=== PATIENT | female | born 1985 | race Caucasian/White ===

== ENCOUNTER 2017-08-28 09:01 | Emergency (ER) | payer OTHER, SELFPAY ==
[2017-08-28 09:26] VITALS: BP 102/68; PULSE 108; RESP 20; TEMP 37.3; O2SAT 99; BMI 17.7
--- NOTE | 2017-08-28 09:32 | XR_ITS ---
XR chest 2V HISTORY: Cough and congestion ITS.REASON: flu A, cough ORDERING PHYSICIAN: Jason Schmid PATIENT AGE: 31 years COMPARISON: None available FINDINGS: The cardiovascular structures are unremarkable. There is hyperattenuation more prominent on the left with areas of decreased attenuation suspicious for bullous or emphysematous changes. There are some mild scarring in the left upper lobe. On the right there are 2 small areas of increased density in the right midlung measuring 12 and 6 mm. Is could be due to patchy areas of pneumonia or developing nodules. Follow-up recommended. If these persist then, chest CT may be needed for further evaluation. No acute bony anomalies. There is mild pectus deformity. IMPRESSION: 1. 2 nodular opacities in the right midlung which could be due to areas of patchy infiltrate or developing nodules. 2. Hyperattenuation on the left with suspected emphysematous/bullous changes
--- NOTE | 2017-08-28 09:46 | HMH.EDUTC ---
[facility] [place] Disposition Clinical Impression: Influenza A, Abnormal chest xray Disposition: Home, Self-Care Condition on Discharge: Good Instructions: DI for Influenza -- Adult, DI for Pneumonia -- Adult Additional Instructions: * Too late to start tamiflu. Most effective when started within 48 hours of symptoms onset. * Chest xray concerning for possible pneumonia. Not conclusive. Start antibiotic and be sure to take as directed and complete it unless directed otherwise. Follow up with primary care extremely important so that chest xray can be repeated to ensure it resolves if was pneumonia or if not, for additional workup. * Mucinex during the day for your cough and cough suppressant only at night. Be sure to drink lots of water. Insurance may not cover a prescription of mucinex. Might be cheaper to get 400mg tablets and take 2 tablets morning, midday and evening all with lots of water. * Lots of rest * Increase fluids, water, gatorade, powerade, pedialyte if /toddler/child * Monitor Temp. Should start to improve over the next 24-48 hours. Tylenol every 4 hours as needed no more then 5 times a day or 4000mg in 24 hours and/or ibuprofen every 6 hours as needed no more then 3200mg in 24 hours (as long as your primary care doctor has told you that it is ok to take both) for fever/aches/pain. ER if fever no less than 101 despite tylenol and Ibuprofen * You (or your child) are contagious until no fever, aches, chills x 24 hours without medication for symptoms. * You need to follow up with primary care or return to [facility] for ANY new or worsening symptoms, no noticeable improvement over the next 48-72 hours AND in 7-10 days for follow up on abnormal chest xray so that it can be repeated. I know you don't have primary care and use your OBGYN for routine health physicals so we have provided you with a list of providers accepting patients. I would encourage you find a new primary care provider and make an appt BIA as it can take weeks to get a new patient appointment. In the meantime, follow up in the clinic or ER for new, worsening or persistent symptoms Prescriptions: Azithromycin [Z-Thomas 250mg Tab] 250 mg PO UD DOSE PK #6 tab Forms: Work/School Release Time of Disposition: 10:48 Medical Decision Making Vital Signs: 08/28/17 09:26 Temperature 99.1 F Temperature Source Temporal Artery Scan Pulse Rate [Left Brachial] 108 H Respiratory Rate 20 Blood Pressure [Left Arm] 102/68 Blood Pressure Mean [Left Arm] 79 Blood Pressure Source [Left Arm] Automatic Cuff Blood Pressure Position [Left Arm] Sitting 02 Sat by Pulse Oximetry 99 Oxygen Delivery Method Room Air - Lab Data Lab results reviewed: Yes: I reviewed the patient's lab results. Lab Results 08/28/17 09:31: Influenza Type A Ag Positive A, Influenza Type B Ag Negative - Radiology Data #1 Image(s): Chest Image Reviewed: Yes I have reviewed radiologist's interpretation, Yes I reviewed the patient's radiology image w/the ED provider [facility] w/ LUIS ALFREDO Martino MD. Questionable RML findings. No comparison. Suggest discussing with radiologist @1000: Silviano in Radiology notified to have radiologist review CXR. @1035: Two nodular opacities in right midlung which could be due to areas of patchy infiltrate or developing nodules. - Gerardo Inquiry Pt receiving controlled substance: No - Reevaluation(s) Time: 10:15 Reevaluation #1: Pt resting reclined comfortably on exam table. updated and aware we are waiting for radiologist to review CXR. No needs at this time. Educated about Influenza and rvwd POC involving influenza. [facility] [place] HPI - General Stated complaint: cough fever achey Time Seen by Provider: 08/28/17 09:25 Mode of Arrival: Ambulatory Source of Information: Patient Limitations: No Limitations Description of Symptoms (Recalled from Triage Doc. by RN): C/O COUGH, FEVER, BODYACHES HEENT Symptoms (Recalled from RN notes): No Resp Symptoms (Recalled from RN notes): Yes (CO
--- NOTE | 2017-08-28 09:49 | ED_ITS ---
[facility] [place] Disposition Clinical Impression: Influenza A, Abnormal chest xray Disposition: Home, Self-Care Condition on Discharge: Good Instructions: DI for Influenza -- Adult, DI for Pneumonia -- Adult Additional Instructions: * Too late to start tamiflu. Most effective when started within 48 hours of symptoms onset. * Chest xray concerning for possible pneumonia. Not conclusive. Start antibiotic and be sure to take as directed and complete it unless directed otherwise. Follow up with primary care extremely important so that chest xray can be repeated to ensure it resolves if was pneumonia or if not, for additional workup. * Mucinex during the day for your cough and cough suppressant only at night. Be sure to drink lots of water. Insurance may not cover a prescription of mucinex. Might be cheaper to get 400mg tablets and take 2 tablets morning, midday and evening all with lots of water. * Lots of rest * Increase fluids, water, gatorade, powerade, pedialyte if /toddler/child * Monitor Temp. Should start to improve over the next 24-48 hours. Tylenol every 4 hours as needed no more then 5 times a day or 4000mg in 24 hours and/or ibuprofen every 6 hours as needed no more then 3200mg in 24 hours (as long as your primary care doctor has told you that it is ok to take both) for fever/ aches/pain. ER if fever no less than 101 despite tylenol and Ibuprofen * You (or your child) are contagious until no fever, aches, chills x 24 hours without medication for symptoms. * You need to follow up with primary care or return to [facility] for ANY new or worsening symptoms, no noticeable improvement over the next 48-72 hours AND in 7 -10 days for follow up on abnormal chest xray so that it can be repeated. I know you don't have primary care and use your OBGYN for routine health physicals so we have provided you with a list of providers accepting patients. I would encourage you find a new primary care provider and make an appt BIA as it can take weeks to get a new patient appointment. In the meantime, follow up in the clinic or ER for new, worsening or persistent symptoms Prescriptions: Azithromycin [Z-Thomas 250mg Tab] 250 mg PO UD DOSE PK #6 tab Forms: Work/School Release Time of Disposition: 10:48 Medical Decision Making Vital Signs: 08/28/17 09:26 Temperature 99.1 F Temperature Source Temporal Artery Scan Pulse Rate [Left Brachial] 108 H Respiratory Rate 20 Blood Pressure [Left Arm] 102/68 Blood Pressure Mean [Left Arm] 79 Blood Pressure Source [Left Arm] Automatic Cuff Blood Pressure Position [Left Arm] Sitting 02 Sat by Pulse Oximetry 99 Oxygen Delivery Method Room Air - Lab Data Lab results reviewed: Yes: I reviewed the patient's lab results. Lab Results 08/28/17 09:31: Influenza Type A Ag Positive A, Influenza Type B Ag Negative - Radiology Data #1 Image(s): Chest Image Reviewed: Yes I have reviewed radiologist's interpretation, Yes I reviewed the patient's radiology image w/the ED provider Joe w/ LUIS ALFREDO Martino MD. Questionable RML findings. No comparison. Suggest discussing with radiologist @1000: Silviano in Radiology notified to have radiologist review CXR. @1035: Two nodular opacities in right midlung which could be due to areas of patchy infiltrate or developing nodules. - Gerardo Inquiry Pt receiving controlled substance: No - Reevaluation(s) Time: 10:15 Reevaluation #1: Pt resting reclined comfortably on exam table. updated and aware we are waiting for radiologist to review CXR. No needs at this t
[2017-08-28 10:17] LABS: UTC Influenza A Antigen Positive (Negative); UTC Influenza B Antigen Negative (Negative)
[2017-08-28 10:50] VITALS: BP 102/68; PULSE 108; RESP 20; TEMP 37.3; O2SAT 99
== END 2017-08-28 10:58 | disposition home or self-care (01) ==
PROVIDERS: Emergency Provider Nurse Practitioner Family
DX: J10.1 Influenza due to other identified influenza virus with other respiratory manifestations (principal)
CPT/HCPCS: 71046; 87804; 99202

== ENCOUNTER 2020-09-01 18:23 | Outpatient (CLI) | payer BC, SELFPAY | END 2020-09-01 19:12 | disposition home or self-care (01) | LOC: UTC.OUT 18:28 | PROVIDERS: PCP Family Medicine; Visit Provider Nurse Practitioner | DX: Z02.9 Encounter for administrative examinations, unspecified ==

== ENCOUNTER 2021-02-07 13:55 | Emergency (ER) | payer BC, SELFPAY ==
[2021-02-07 13:56] VITALS: BP 127/79; PULSE 95; RESP 18; TEMP 36.7; O2SAT 97; BMI 19.2
[2021-02-07 14:25] VITALS: BP 127/79; PULSE 90; O2SAT 100
[2021-02-07 14:36] LABS: Microscopic, Urine URINE MICROSCOPIC (MICROSCOPIC)
[2021-02-07 14:38] LABS: Appearance,Urine CLEAR (Clear); Bilirubin,Urine Negative (Negative); Blood, Urine 3+ (Negative); Color,Urine YELLOW (Yellow); Glucose,Urine (UA) Negative (Negative); Ketones,Urine Negative (Negative); Leukocyte Esterase,Urine TRACE (Negative); Nitrate,Urine Negative (Negative); Protein,Urine Negative (Negative); Specific Gravity, Urine <= 1.005 (1.005-1.030); Urobilinogen,Urine 0.2 EU/dl (0.2)
[2021-02-07 14:51] LABS: WBC,Urine Occasional #/hpf (0-3)
--- NOTE | 2021-02-07 15:02 | US_ITS ---
PROCEDURE: US TRANSVAGINAL CLINICAL INDICATION: first trimester bleeding COMPARISON: CT ABDPELW/WO CT ABD PELVIS W/WO CONTRAST from 03/23/2014 FINDINGS: An intrauterine gestational sac is present with a pole and yolk sac. [place]-rump length is 0.27 cm correlating to gestational age of 5 weeks and 6 days. Questionable heart flicker noted but no definite heart tones. There is a heterogeneous area of echogenicity anterior to the gestational sac measuring 4 x 2 x 3.5 cm and may represent a prominent area of subchorionic hemorrhage. Right ovary is 3 x 3 x 3 x 1.2 cm and contains a 1.8 cm cyst. Left ovary has an unremarkable appearance. No cul-de-sac fluid is evident. IMPRESSION: 1. Intrauterine gestational sac with a crown-rump length of 5 weeks 6 days with questionable heart flicker. Cannot confirm viability at this time. 2. Heterogeneous echogenicity anterior to the gestational sac consistent with subchorionic bleed. Recommend follow-up to confirm resolution and to confirm viability. Dictated by: Pedro Berg MD 02/07/2021 15:59 Pedro Berg MD in OV 02/07/2021 15:59
[2021-02-07 15:10] LABS: HCG Qualitative, Serum Positive (Negative)
--- NOTE | 2021-02-07 15:21 | PC.NURSE ---
Pt with US
--- NOTE | 2021-02-07 15:23 | HMH.EDGENADL ---
ED Disposition Clinical Impression: Vaginal bleeding UTI (urinary tract infection) Qualifiers: Urinary tract infection type: acute cystitis Hematuria presence: with hematuria Qualified Code(s): N30.01 - Acute cystitis with hematuria Subchorionic bleed Qualifiers: Fetus number: single or unspecified fetus Trimester: first trimester Qualified Code(s): O41.8X10 - Other specified disorders of amniotic fluid and membranes, first trimester, not applicable or unspecified; O46.8X1 - Other antepartum hemorrhage, first trimester Disposition: Home, Self-Care Condition on Discharge: Good Instructions: DI for Vaginal Bleeding Additional Instructions: Please take antibiotic as prescribed Please follow-up with your OB for further evaluation. Ultrasound today demonstrated your gestational age 5 weeks and 6 days Prescriptions: Nitrofurantoin Monohyd/M-Cryst [Macrobid 100 mg Capsule] 100 mg PO BID 5 Days #10 cap Prescription Printed Referrals: Provider,Referral, [Primary Care Provider] - - Critical Care Critical Care Time: No Attestation: On 02/07/21, the high probability of a clinically significant, sudden or life threatening deterioration of the following system(s) required my full and direct attention, intervention and personal management. The time I documented below is in addition to time spent performing reported procedures but includes the following listed in this critical care notation. Medical Decision Making - Medical Records Medical records reviewed: Yes: I reviewed the patient's medical records. - Gerardo Inquiry Pt receiving controlled substance: No Vital Signs: 02/07/21 13:56 02/07/21 14:25 02/07/21 16:00 Temperature 98.1 F Temperature Source Oral Pulse Rate 90 86 Pulse Rate [Right] 95 H Respiratory Rate 18 Blood Pressure 127/79 112/81 Blood Pressure [Right Arm] 127/79 Blood Pressure Mean [Right Arm] 95 02 Sat by Pulse Oximetry 97 100 100 Oxygen Delivery Method Room Air 02/07/21 16:30 Temperature Temperature Source Pulse Rate 74 Pulse Rate [Right] Respiratory Rate Blood Pressure 104/77 L Blood Pressure [Right Arm] Blood Pressure Mean [Right Arm] 02 Sat by Pulse Oximetry 98 Oxygen Delivery Method - Lab Data Lab Results 02/07/21 14:20: Urine Color Yellow, Urine Appearance Clear, Urine pH 6.0, Ur Specific [place] <= 1.005, Urine Protein Negative, Urine Glucose (UA) Negative, Urine Ketones Negative, Urine Blood 3+, Urine Nitrate Negative, Urine Bilirubin Negative, Urine Urobilinogen 0.2, Ur Leukocyte Esterase Trace, Urine RBC 5-10, Urine WBC Occasional, Ur Squamous Epith Cells 3-5, Urine Bacteria None 02/07/21 14:28: HCG, Quant [id number] H 02/07/21 14:28: Serum HCG, Qual Positive 02/07/21 15:58: Blood Type A Negative, Antibody Screen Negative Orders (Tests/Meds): ORDERS Category Date Time Status US transvaginal Stat Exams 02/07/21 15:02 Taken Medical Decision Narrative: Upon presentation, patient is hemodynamically stable and nontoxic-appearing. Patient presents with vaginal bleeding the setting of . Differential diagnosis includes but is not limited to first trimester bleeding, miscarriage, hematuria. A quantitative beta-hCG, transvaginal ultrasound and UA were obtained. Patient's Beta hCG was positive to over [id number], consistent with 1-10 weeks gestation. Patient's transvaginal ultrasound demonstrates an intrauterine with gestational age of 5 weeks and 6 days. This coincides with patient's beta-hCG. Additionally patient's UA demonstrates some bacteria and leukocyte esterase. She will be treated for UTI. I discussed results with the patient and recommended follow-up with her OB. Patient states she has an appointment on February 21, 2 weeks from today. General Adult HPI - General Chief complaint: Vaginal Bleeding Stated complaint: 6 wks, possible miscarriage Time Seen by Provider: 02/07/21 14:10 Mode of Arrival: Family Vehicle So
[2021-02-07 15:26] LABS: HCG,Quantitative 14466 mIU/ml (0-5.42)
[2021-02-07 16:00] VITALS: BP 112/81; PULSE 86; O2SAT 100
[2021-02-07 16:30] VITALS: BP 104/77; PULSE 74; O2SAT 98
[2021-02-07 18:00] VITALS: BP 122/65; PULSE 76; RESP 15; TEMP 36.7; O2SAT 97
== END 2021-02-07 18:04 | disposition home or self-care (01) ==
PROVIDERS: Emergency Provider Emergency Medicine
DX: O41.8X10 Other specified disorders of amniotic fluid and membranes, first trimester, not applicable or unspecified (principal); O46.8X1 Other antepartum hemorrhage, first trimester; N30.01 Acute cystitis with hematuria
CPT/HCPCS: 76830; 81001; 84702; 84703; 86850; 99282

== ENCOUNTER → 2023-05-22 15:21 | Outpatient (POV) | payer BC, SELFPAY | PROVIDERS: Visit Provider Dermatology | DX: Z00.00 Encounter for general adult medical examination without abnormal findings (principal) ==

== ENCOUNTER 2024-01-16 08:01 | Outpatient (CLI) | payer BC, SELFPAY ==
--- NOTE | 2024-01-16 08:04 | MM_ITS ---
PROCEDURE INFORMATION: Exam: Bilateral Screening 3D Mammography Exam date and time: 01/16/2024 7:52 AM Age: 38 years old Clinical indication: Screening examination TECHNIQUE: Imaging protocol: Bilateral Screening tomosynthesis and 2D mammography including computer-aided detection (CAD) when performed. COMPARISON: No relevant prior studies available. FINDINGS: MAMMOGRAPHY: Breast composition: The breasts are extremely dense, which lowers the sensitivity of mammography. Mass: None. Architectural distortion: None. Calcifications: No suspicious calcifications. Asymmetric density: None. Skin thickening: None. Axillary adenopathy: None. IMPRESSION: No mammographic evidence of malignancy. Annual screening is recommended unless otherwise clinically indicated. ASSESSMENT: BI-RADS Category 1: Negative
== END 2024-01-16 23:59 | disposition home or self-care (01) ==
LOC: RAD 08:02
PROVIDERS: PCP Nurse Practitioner Family; Visit Provider Nurse Practitioner Family
DX: Z12.31 Encounter for screening mammogram for malignant neoplasm of breast (principal)
CPT/HCPCS: 77063; 77067

== ENCOUNTER 2024-02-09 14:31 | Emergency (ER) | payer BC, SELFPAY ==
--- OUTSIDE RECORDS SUMMARY | 2024-02-09 14:34 | XMS_ITS ---
Author Organization [facility] Address [address] [place] [address] Care Team Providers Care Architectural Superintendent Name Role Phone Chandrika Darling Primary Care Provider [phone] Vince Bhat Unavailable [phone] Vince Bhat Unavailable Unavailable Deepa Bird Unavailable [phone] RESULTS Component Value Reference Range Notes Mammogram : Bilateral Reviewed date:01/24/2024 02:01:56 PM Interpretation: Performing Lab: Notes/Report: REASON FOR VISIT mammogram order Encounters Encounter Location Date Provider Diagnosis [facility] [address] [place] [address] 01/08/2024 Deepa Bird Breast cancer screening by mammogram Z12.31 ASSESSMENTS Encounter Date Diagnosis Assessment Notes Treatment Notes Treatment Clinical Notes 01/08/2024 Breast cancer screening by mammogram (ICD-10 - Z12.31) PLAN OF TREATMENT No Information Progress Notes * Chichi SUTTONB: 6 (38 yo F)Acc No.[id number]:01/08/2024 Patient:??Toyin SUTTON :1985?Age:38 Y?Sex:Fe male Address:[place] [address] Subjective: * Chief Complaints: * ?Mammogram order * Medical History:?? * Surgical History:?? * Hospitalization/Major Diagno stic Procedure:?? * Medications:?? Objective: Assessment: * Assessment: 1.??Breast cancer screening by mammogram - Z12.?? Plan: * Treatment: * Procedure Codes:?? * true * Date:??
--- OUTSIDE RECORDS SUMMARY | 2024-02-09 14:34 | XMS_ITS ---
Author Organization [facility] Address [address] [place] [address] Care Team Providers Care Obstetrics Nurse Practitioner Name Role Phone Chandrika Darling Primary Care Provider [phone] Vince Bhat Unavailable [phone] Vince Bhat Unavailable Unavailable Deepa Bird Unavailable [phone] ALLERGIES No Known Allergies RESULTS Component Value Reference Range Notes LIPID PANEL, STANDARD (7600) Reviewed date:12/20/2023 10:36:14 AM Interpretation: Performing Lab:[facility], [employer] [facility] CenterjayleenAtlantiCare [facility] CenterIhkqWH[address] Philip Epperson Notes/Report: NON-FASTING; NON-FASTING; NON-FASTING; NON-FASTING; NON-FAST FASTING:YES FASTING: YES CHOLESTEROL, TOTAL 143 <200 mg/dL HDL CHOLESTEROL 50 > OR = 50 mg/dL TRIGLYCERIDES 77 <150 mg/dL LDL-CHOLESTEROL 77 Reference range: <100 Desirable range <100 mg/dL for primary prevention; <70 mg/dL for patients with CHD or diabetic patients with > or = 2 CHD risk factors. LDL-C is now calculated using the Zehra calculation, which is a validated novel method providing better accuracy than the Friedewald equation in the estimation of LDL-C. Nishant BEAVER et al. NEL. 2013;310(19): 3380-3196 (http://education.GroundLink.ZEB/faq/XCZ270) CHOL/HDLC RATIO 2.9 <5.0 (calc) NON HDL CHOLESTEROL 93 <130 mg/dL (calc) For patients with diabetes plus 1 major ASCVD risk factor, treating to a non-HDL-C goal of <100 mg/dL (LDL-C of <70 mg/dL) is considered a therapeutic option. COMPREHENSIVE METABOLIC PANE L (12887) Reviewed date:12/20/2023 10:36:14 AM Interpretation: Performing Lab:[facility] Hand[facility]-panpan [id number], [employer] BiosciencesRcqyFV[address] Philip Epperson Notes/Report: NON-FASTING; NON-FASTING; NON-FASTING; NON-FASTING; NON-FAST FASTING:YES FASTING: YES GLUCOSE 76 65-99 mg/dL Fasting reference interval UREA NITROGEN (BUN) 11 7-25 mg/dL CREATININE 0.86 0.50-0.97 mg/dL EGFR 89 > OR = 60 mL/min/1.73m2 BUN/CREATININE RATIO SEE NOTE: 6-22 (calc) Not Reported: BUN and Creatinine are within reference range. SODIUM 138 135-146 mmol/L POTASSIUM 4.3 3.5-5.3 mmol/L CHLORIDE 103 98-110 mmol/L CARBON DIOXIDE 27 20-32 mmol/L CALCIUM 9.3 8.6-10.2 mg/dL PROTEIN, TOTAL 6.9 6.1-8.1 g/dL ALBUMIN 4.5 3.6-5.1 g/dL GLOBULIN 2.4 1.9-3.7 g/dL (calc) ALBUMIN/GLOBULIN RATIO 1.9 1.0-2.5 (calc) BILIRUBIN, TOTAL 0.6 0.2-1.2 mg/dL ALKALINE PHOSPHATASE 47 31-125 U/L AST 14 10-30 U/L ALT 13 6-29 U/L IRON AND TOTAL IRON BINDING CAPACITY (7573) Reviewed date:12/20/2023 10:36:14 AM Interpretation: Performing Lab:[facility] MongoSluicee[address] [employer], [employer] [id number] Philip Epperson Notes/Report: NON-FASTING; NON-FASTING; NON-FASTING; NON-FASTING; NON-FAST FASTING:YES FASTING: YES IRON, TOTAL 70 40-190 mcg/dL IRON BINDING CAPACITY 381 250-450 mcg/dL (isabella c) % SATURATION 18 16-45 % (calc) CBC (INCLUDES DIFF/PLT) (639 9) Reviewed date:12/20/2023 10:36:14 AM Interpretation: Performing Lab:[facility] Handipoints-panpan [id number] [employer], [facility] CenterBrveUM[address] Philip Epperson Notes/Report: NON-FASTING; NON-FASTING; NON-FASTING; NON-FASTING; NON-FAST FASTING:YES FASTING: YES WHITE BLOOD CELL COUNT 6.3 3.8-10.8 Thousand/ uL RED BLOOD CELL COUNT 4.89 3.80-5.10 Million/uL HEMOGLOBIN 14.1 11.7-15.5 g/dL HEMATOCRIT 43.8 35.0-45.0 % MCV 89.6 80.0-100.0 fL MCH 28.8 27.0-33.0 pg MCHC 32.2 32.0-36.0 g/dL RDW 11.6 11.0-15.0 % PLATELET COUNT 221 140-400 Thousand/uL MPV 10.5 7.5-12.5 fL ABSOLUTE NEUTROPHILS 3988 3383-8820 cells/uL ABSOLUTE LYMPHOCYTES 2046 271-0474 cells/uL ABSOLUTE MONOCYTES 491 200-950 cells/uL ABSOLUTE EOSINOPHILS 139 15-500 cells/uL ABSOLUTE BASOPHILS 82 0-200 cells/uL NEUTROPHILS 63.3 LYMPHOCYTES 25.4 MONOCYTES 7.8 EOSINOPHILS 2.2 BASOPHILS 1.3 HEMOGLOBIN A1c (496) Reviewed date:12/20/2023 10:36:14 AM Interpretation: Performing Lab:[facility] Hand[facility]-panpan [id number] [employer], [facility] CenterCyymSS[address] Philip Epperson Notes/Report: NON-FASTING; NON-FASTING; NON-FASTING; NON-FASTING; NON-FAST FASTING:YES FASTING: YES HEMOGLOBIN A1c 5.3 <5.7 % of total Hgb For the purpose of screening for the presence of diabetes: <5.7% Consistent with the absence of diabetes 5.7-6.4% Consistent with increased risk for diabetes (prediabetes) > or =6.5% Consistent with diabetes This assay result is consistent with a decreased risk of diabetes. Currently, no consensus exists regarding use of hemoglobin A1c for diagnosis of diabetes in children. According to [place] Diabetes Association (ADA) guidelines, hemoglobin A1c <7.0% represents optimal control in non- diabetic patients. Different metrics may apply to specific patient populations. Standards of Medical Care in Diabetes(ADA). This test was performed on the Rob rocky c503 platform. Effective 09/12/23, a change in test platforms from the Pack Extrusion Former to the Rob rocky c503 may have shifted HbA1c results compared to historical results. Based on laboratory validation testing conducted at [facility], the Rob platform relative to the Pack platform had an average increase in HbA1c value of < or = 0.3%. This difference is within accepted variability established by the National Glycohemoglobin Standardization Program. Note that not all individuals will have had a shift in their results and direct comparisons between historical and current results for testing conducted on different platforms is not recommended. VITAMIN B12 (927) Reviewed date:12/20/2023 10:36:14 AM Interpretation: Performing Lab:[facility] Hand[facility]oint[facility]-G[facility] Biosciencese1355 [employer], Pickup ServicesLvnqZZ[address] Philip Epperson Notes/Report: NON-FASTING; NON-FASTING; NON-FASTING; NON-FASTING; NON-FAST FASTING:YES FASTING: YES VITAMIN B12 994 264-4177 pg/mL TSH W/REFLEX TO FT4 (65313) Reviewed date:12/20/2023 10:36:14 AM Interpretation: Performing Lab:[facility] Hand[facility]-panpan [id number] [employer], Pickup ServicesVleaQO[address] Philip Epperson Notes/Report: NON-FASTING; NON-FASTING; NON-FASTING; NON-FASTING; NON-FAST FASTING:YES FASTING: YES TSH W/REFLEX TO FT4 1.79 Reference Range > or = 20 Years 0.40-4.50 Ranges First trimester 0.26-2.66 Second trimester 0.55-2.73 Third trimester 0.43-2.91 VITAMIN D,25-OH,TOTAL,IA (17 306) Reviewed date:12/20/2023 10:36:14 AM Interpretation: Performing Lab:[facility] [address], Pickup ServicesDudlVK[address] Philip Epperson Notes/Report: NON-FASTING; NON-FASTING; NON-FASTING; NON-FASTING; NON-FAST FASTING:YES FASTING: YES VITAMIN D,25-OH,TOTAL,IA 41 30-100 ng/mL Vitamin D Status 25-OH Vitamin D: Deficiency: <20 ng/mL Insufficiency: 20 - 29 ng/mL Optimal: > or = 30 ng/mL For 25-OH Vitamin D testing on patients on D2-supplementation and patients for whom quantitation of D2 and D3 fractions is required, the QuestAssureD(TM) 25-OH VIT D, (D2,D3), LC/MS/MS is recommended: order code 06255 (patients >2yrs). See Note 1 Note 1 For additional information, please refer to http://Cook Taste Eat.Contactually/faq/OGB695 (This link is being provided for informational/ educational purposes only.) REASON FOR VISIT Check Up-c/o being tired-should she still be taking the Ferrous Sulfate SOCIAL HISTORY Tobacco Use: Social History Observation Description Date Details (start date - stop date) Never Smoker NA - NA Sex Assigned At : Social History Observation Description Sex Assigned At Unknown Smoking: Question Answer Notes Are you a: nonsmoker PROBLEMS Problem Type ICD Code Onset Dates Problem Status W/U Status Risk SNOMED Code Notes Problem Iron deficiency anemia, unspecified iron deficiency anemia type (D50.9) Active confirmed 63811952 Problem Hypoglycemia (E16.2) Active confirmed 534542575 VITAL SIGNS Temperature 97.8 degrees Fahrenheit 12/13/19 24 Heart Rate 78 /min 2023 Blood pressure systolic 104 mm Hg 12/13/19 24 Blood pressure diastolic 72 mm Hg 024 Height 70.75 in 2023 Weight 135.8 lbs 2023 BMI 19.07 kg/m2 2023 Encounters Encounter Location Date Provider Diagnosis [facility] [address] [facility] [address] [place] [address] 2023 Deepa Bird Routine medical exam Z00.00 ; Iron deficiency anemia, unspecified iron deficiency anemia type D50.9 ; Hypoglycemia E16.2 and Fatigue, unspecified type R53.83 ASSESSMENTS Encounter Date Diagnosis Assessment Notes Treatment Notes Treatment Clinical Notes 2023 Routine medical exam (ICD-10 - Z00.00) PVM UTD. Will return for labs. Declines immunizations 2023 Iron deficiency anemia, unspecified iron deficiency anemia type (ICD-10 - D50.9) Will check CBC and iron levels and treat as indicated 2023 Hypoglycemia (ICD-10 - E16.2) A1c added to labs. Discussed diet with consistent carb, protein at all meals. 2023 Fatigue, unspecified type (ICD-10 - R53.83) Chronic, at baseline. Likely multifactorial with small children, busy lifestyle, interrupted sleep due to children some nights. PERFECTO could be contributing. Labs to r/o other causes. If normal recommend sleep study. Patient denies snoring PLAN OF TREATMENT Treatment Notes Assessment Notes Routine medical exam PVM UTD. Will retur n for labs. Declines immunizations Iron deficiency anemia, unsp ecified iron deficiency anemia type Will check CBC and iron levels and treat as indicated Hypoglycemia A1c added to labs. D iscussed diet with consistent carb, protein at all meals. Fatigue, unspecified type Chronic, at [facility]. Likely multifactorial with small children, busy lifestyle, interrupted sleep due to children some nights. PERFECTO could be contributing. Labs to r/o other causes. If normal recommend sleep study. Patient denies snoring Next Appt Details Follow Up: 1 Year,Regina hein n: Progress Notes * PHILOMENAChichiB: 6 (37 yo F)Acc No.[id number]:2023 Progress Notes Patient:??Toyin SUTTON Provider:??Deepa Bird APRN :1985?Age:37 Y?Sex:Fe male Date:2023 Address:[address] [place] [address] [place], [id number] Pcp:Chandrika Darling Subjective: * Chief Complaints: * ?1. Check Up-c/o being tired-should she still be taking the Ferrous Sulfate. * HPI: ?gen:? 37 year old female presents for annual wellness exam. Reports ongoing fatigue despite sleeping 8+ hours most nights. Does not feel rested. [place] 6 months ago dx with PERFECTO, has been taken ferrous sulfate daily, does not see any improvement of fatigue. SOA has resolved. Very active, no exertional symptoms. Concerned that blood sugar is dropping. Reports episodes of feeling shaking and sweaty that resolve with eating. Pap UTD. Declines all vaccines. * ROS:?ALLERGY:?no??Scratchy throat.??no??Itchy eyes.?RESPIRATORY:?Reviewed, No Symptoms Reported:??Yes.?CARDIOLOGY:?Reviewed, No Symptoms Reported:??Yes.?CONSTITUTIONAL:?no??Loss of appetite.??no??Fever.??no??Weight loss.??Fatigue?? yes.?DERMATOLOGY:?no??Rash.?GASTROENTEROLOGY:?Reviewed, No Symptoms Reported:??Yes.?HEMATOLOGY/LYMPH:?no??Swollen glands.??no??Easy bruising.?MUSCULOSKELETAL:?no??Joint pain.??no??Joint swelling.?NEUROLOGY:?no??Headache.??no??Tingling numbness.?UROLOGY:?Dysuria??no.??no??Difficulty urinating.??no??Blood in urine.? * Medical History:??Medical Hi story Verified. * Surgical History:??Diaphrama tic Hernia Repair 1986, 2021. * Hospitalization/Major Diagno stic Procedure:?? 2021. * Family History:??Father: sherman correia.??Mother: alive.??Paternal Grand Father: .??Paternal Grand Mother: .??Maternal Grand Father: .??Maternal Grand Mother: alive, cancer.??Paternal uncle: alive.??Siblings: alive.??1 sister(s) . 1 son(s) , 1 daughter(s) . .?? * Social History:??Smoking??Ar e you a:??nonsmoker.??Recreational drug use: no. Exercise: no. Home smoke detector use: yes. Caffeine: yes, frequency: coffee daily. Alcohol: socially, glass of wine, not very often. Sexually active: yes. Occupation: Teacher at [employer]. * Medications:??Discontinued f errous sulfate 325 mg tablet 1 tab(s) orally once a day , Medication List reviewed and reconciled with the patient * Allergies:??N.K.D.A. Objective: * Vitals:??Nurse: rosario, Temp: 97 .8, RR: 16, HR: 78, BP: 104/72, Ht: 70.75, Wt: 135.8, BMI:19.07. * Examination: ?General Examination: ?General??Pleasant and Cooperative, NAD on RA,.?Chest:??normal shape and expansion.?Heart:??Regular Rate and Rhythm, no murmur, rubs or gallops.?HEENT:??bilateral hearing aids, serous effusions bilaterally, pharynx normal .?Lungs:??LCTAB, No wheezes, crackles or rhonchi, Good air movement,.?Abdomen:??Soft, NTND, BSNA, No organomegaly or peritoneal signs..?Neurologic Exam:??normal sensation, strength, tone.?Skin:??without acute rashes.?Peripheral pulses:??normal (2+) bilaterally.?neck??supple,, no thyromegaly,, no lymphadenopathy,.?Psych??Normal Mood/Affect.? Assessment: * Assessment: 1.??Routine medical exam - Z 00.00 (Primary)??2.??Iron deficiency anemia, unspecified iron deficiency anemia type - D50.9??3.??Hypoglycemia - E16.2??4.??Fatigue, unspecified type - R53.83?? Plan: * Treatment: 2.??Iron deficiency anemia, unspecified iron deficiency anemia type?LAB: IRON AND TOTAL IRON BINDING CAPACITY (7839) ?LAB: CBC (INCLUDES DIFF/PLT) (9227) Notes: Will check CBC and iron levels and treat as indicated? 3.??Hypoglycemia?LAB: HEMOGLOBIN A1c (496) Notes: A1c added to labs. Discussed diet with consistent carb, protein at all meals. ? 4.??Fatigue, unspecified typ e?LAB: VITAMIN B12 (927) ?LAB: TSH W/REFLEX TO FT4 (82548) ?LAB: VITAMIN D,25-OH,TOTAL,IA (11572) Notes: Chronic, at baseline. Likely multifactorial with small children, busy lifestyle, interrupted sleep due to children some nights. PERFECTO could be contributing. Labs to r/o other causes. If normal recommend sleep study. Patient denies snoring? * Follow Up:??1 Year,prn * * Sign off status: Completed true * Provider:??Deepa Bird, SUE Date :??2023 History and Physical Notes * Examination Category Sub-Category Detail Notes General Examination HEENT: bilateral he aring aids, serous effusions bilaterally, pharynx normal Heart: Regular Rate and Rhy thm, no murmur, rubs or gallops Lungs: LCTAB, No wheezes, c rackles or rhonchi, Good air movement, Abdomen: Soft, NTND, BSNA, No organomegaly or peritoneal signs. Skin: without acute rashes Neurologic Exam: normal sensation, st rength, tone Peripheral pulses: normal (2+) bilatera lly Chest: normal shape and exp ansion neck supple,, no thyromeg violeta,, no lymphadenopathy, General Pleasant and Coopera tive, NAD on RA, Psych Normal Mood/Affect
--- OUTSIDE RECORDS SUMMARY | 2024-02-09 14:34 | XMS_ITS ---
Author Organization [facility] Address [address] [place] [address] Care Team Providers Care Business Analyst Consultant Name Role Phone Chandrika Darling Primary Care Provider Vince Bhat Unavailable [phone] Vince Bhat Unavailable Unavailable Deepa Bird Unavailable [phone] Encounters Encounter Location Date Provider Diagnosis [facility] [address] [place], [place] [address] 12/19/2023 Deepa Bird PLAN OF TREATMENT No Information Progress Notes * Chichi SUTTONB: 6 (38 yo F)Acc No.[id number]:12/19/2023 LABS Patient:??Toyin SUTTON Provider:??Deepa Bird APRN :1985?Age:38 Y?Sex:Fe male Date:12/19/2023 Address:[id number] Pcp:Chandrika Darling Subjective: * Chief Complaints: * ? * Medical History:?? Objective: Assessment: Plan: * Treatment: * * Sign off status: Pending * Provider:??Deepa Bird, VP EMERGING MEDIA Date :??12/19/2023
--- OUTSIDE RECORDS SUMMARY | 2024-02-09 14:35 | XMS_ITS | Patient Health Record ---
Author Organization [facility] Address [address] [place] [address] Care Team Providers [facility] Name Role Phone DarlingChandrika Primary Care Provider Vince Bhat Unavailable [phone] Vince Bhat Unavailable Unavailable Deepa Bird Unavailable [phone] ALLERGIES No Known Allergies RESULTS Component Value Reference Range Notes Mammogram : Bilateral Reviewed date:01/24/2024 02:01:56 PM Interpretation: Performing Lab: Notes/Report: IRON, TIBC AND FERRITIN GABBY Landaverde (5616) Reviewed date:05/17/2023 12:04:41 PM Interpretation: Performing Lab:[facility], Surgical TheaterRutoXD[address] Philip Epperson Notes/Report: NON-FASTING; NON-FASTING; NON-FASTING; NON-FASTING; NON-FAST IRON, TOTAL 16 40-190 mcg/dL IRON BINDING CAPACITY 444 250-450 mc g/dL (calc) % SATURATION 4 16-45 % (calc) FERRITIN 3 16-154 ng/mL FSH AND LH (7137) Reviewed date:05/05/2023 08:47:31 AM Interpretation: Performing Lab:[facility] [address], KlipfolioStqnPU[address] Philip Epperson Notes/Report: NON-FASTING; NON-FASTING; NON-FASTING; NON-FASTING; NON-FAST FSH 2.2 Reference Range Follicular Phase 2.5-10.2 Mid-cycle Peak 3.1-17.7 Luteal Phase 1.5- 9.1 Postmenopausal 23.0-116.3 LH 0.8 Reference Range Follicular Phase 1.9-12.5 Mid-Cycle Peak 8.7-76.3 Luteal Phase 0.5-16.9 Postmenopausal 10.0-54.7 LIPID PANEL, STANDARD (7600) Reviewed date:12/20/2023 10:36:14 AM Interpretation: Performing Lab:[facility], Surgical TheaterSqxkHL[address] Philip Epperson Notes/Report: NON-FASTING; NON-FASTING; NON-FASTING; NON-FASTING; NON-FAST FASTING:YES FASTING: YES CHOLESTEROL, TOTAL 143 <200 mg/dL HDL CHOLESTEROL 50 > OR = 50 mg/dL TRIGLYCERIDES 77 <150 mg/dL LDL-CHOLESTEROL 77 Reference range: <100 Desirable range <100 mg/dL for primary prevention; <70 mg/dL for patients with CHD or diabetic patients with > or = 2 CHD risk factors. LDL-C is now calculated using the Nishant-Neville calculation, which is a validated novel method providing better accuracy than the Friedewald equation in the estimation of LDL-C. Nishant SS et al. NEL. 2013;310(19): 7843-5410 (http://education.P[employer].Agile Health/faq/FAQ16 4) CHOL/HDLC RATIO 2.9 <5.0 (calc) NON HDL CHOLESTEROL 93 <130 mg/dL (calc) For patients with diabetes plus 1 major ASCVD risk factor, treating to a non-HDL-C goal of <100 mg/dL (LDL-C of <70 mg/dL) is considered a therapeutic option. COMPREHENSIVE METABOLIC PANE L (70704) Reviewed date:12/20/2023 10:36:14 AM Interpretation: Performing Lab:[facility] [employer] [facility], Surgical TheaterVzwaDB[address] Philip Epperson Notes/Report: NON-FASTING; NON-FASTING; NON-FASTING; NON-FASTING; [...] 14 10-30 U/L ALT 13 6-29 U/L COMPREHENSIVE METABOLIC PANE L (78233) Reviewed date:05/17/2023 12:04:42 PM Interpretation: Performing Lab:[facility], [facility], [facility] CenterBpqaDD[address] Philip Epperson Notes/Report: NON-FASTING; NON-FASTING; NON-FASTING; NON-FASTING; NON-FAST GLUCOSE 80 65-99 mg/dL Fasting reference interval UREA NITROGEN (BUN) 18 7-25 mg/dL CREATININE 1.08 0.50-0.97 mg/dL EGFR 68 > OR = 60 mL/min/1.73m2 BUN/CREATININE RATIO 17 6-22 (calc) SODIUM 138 135-146 mmol/L POTASSIUM 4.1 3.5-5.3 mmol/L CHLORIDE 104 98-110 mmol/L CARBON DIOXIDE 29 20-32 mmol/L CALCIUM 9.1 8.6-10.2 mg/dL PROTEIN, TOTAL 7.0 6.1-8.1 g/dL ALBUMIN 4.5 3.6-5.1 g/dL GLOBULIN 2.5 1.9-3.7 g/dL (calc) ALBUMIN/GLOBULIN RATIO 1.8 1.0-2.5 (calc) BILIRUBIN, TOTAL 0.3 0.2-1.2 mg/dL ALKALINE PHOSPHATASE 47 31-125 U/L AST 15 10-30 U/L ALT 12 6-29 U/L IRON AND TOTAL IRON BINDING CAPACITY (7573) Reviewed date:12/20/2023 10:36:14 AM Interpretation: Performing Lab:[facility] [address], Surgical TheaterFjtlWL[address] Philip Epperson Notes/Report: NON-FASTING; NON-FASTING; NON-FASTING; NON-FASTING; NON-FAST FASTING:YES FASTING: YES IRON, TOTAL 70 40-190 mcg/dL IRON BINDING CAPACITY 381 250-450 mc g/dL (calc) % SATURATION 18 16-45 % (calc) CBC (INCLUDES DIFF/PLT) (639 9) Reviewed date:12/20/2023 10:36:14 AM Interpretation: Performing Lab:[facility] [address], Surgical TheaterVpztPR[address] Philip Epperson Notes/Report: NON-FASTING; NON-FASTING; NON-FASTING; NON-FASTING; NON-FAST FASTING:YES FASTING: YES WHITE BLOOD CELL COUNT 6.3 3.8-10.8 Thousand/uL RED BLOOD CELL COUNT 4.89 3.80-5.10 Million/uL HEMOGLOBIN 14.1 11.7-15.5 g/dL HEMATOCRIT 43.8 35.0-45.0 % MCV 89.6 80.0-100.0 fL MCH 28.8 27.0-33.0 pg MCHC 32.2 32.0-36.0 g/dL RDW 11.6 11.0-15.0 % PLATELET COUNT 221 140-400 Thousand/uL MPV 10.5 7.5-12.5 fL ABSOLUTE NEUTROPHILS 3988 1921-3292 cells/uL ABSOLUTE LYMPHOCYTES 1704 192-0463 cells/uL ABSOLUTE MONOCYTES 491 200-950 cells/uL ABSOLUTE EOSINOPHILS 139 15-500 cells/uL ABSOLUTE BASOPHILS 82 0-200 cells/uL NEUTROPHILS 63.3 LYMPHOCYTES 25.4 MONOCYTES 7.8 EOSINOPHILS 2.2 BASOPHILS 1.3 CBC (INCLUDES DIFF/PLT) (639 9) Reviewed date:05/05/2023 08:47:47 AM Interpretation: Performing Lab:[facility] [address], [facility] DiagnosticsKdxlZE[address] Philip Epperson Notes/Report: NON-FASTING; NON-FASTING; NON-FASTING; NON-FASTING; NON-FAST WHITE BLOOD CELL COUNT 7.5 3.8-10.8 Thousand/uL RED BLOOD CELL COUNT 4.91 3.80-5.10 Million/uL HEMOGLOBIN 11.0 11.7-15.5 g/dL HEMATOCRIT 36.5 35.0-45.0 % MCV 74.3 80.0-100.0 fL MCH 22.4 27.0-33.0 pg MCHC 30.1 32.0-36.0 g/dL RDW 14.7 11.0-15.0 % PLATELET COUNT 292 140-400 Thousand/uL MPV 10.7 7.5-12.5 fL ABSOLUTE NEUTROPHILS 4328 0809-5295 cells/uL ABSOLUTE LYMPHOCYTES 2145 850-3900 cells/uL ABSOLUTE MONOCYTES 803 200-950 cells/uL ABSOLUTE EOSINOPHILS 158 15-500 cells/uL ABSOLUTE BASOPHILS 68 0-200 cells/uL NEUTROPHILS 57.7 LYMPHOCYTES 28.6 MONOCYTES 10.7 EOSINOPHILS 2.1 BASOPHILS 0.9 HEMOGLOBIN A1c (496) Reviewed date:12/20/2023 10:36:14 AM Interpretation: Performing Lab:[facility], [facility] CenterSvwlBH[address] Philip Epperson Notes/Report: NON-FASTING; NON-FASTING; NON-FASTING; NON-FASTING; [...] diagnosis of diabetes in children. According to [place] Diabetes Association (ADA) guidelines, hemoglobin A1c <7.0% represents optimal control in non- diabetic patients. Different metrics may apply to specific patient populations. Standards of Medical Care in Diabetes(ADA). This test was performed on the Rob rocky c503 platform. Effective 09/12/23, a change in test platforms from the Pack Compliance And Control Analyst to the Rob rocky c503 may have shifted HbA1c results compared to historical results. Based on laboratory validation testing conducted at [facility], the Rob platform relative to the Pack platform had an average increase in HbA1c value of < or = 0.3%. This difference is within accepted variability established by the National Glycohemoglobin Standardization Program. Note that not all individuals will have had a shift in their results and direct comparisons between historical and current results for testing conducted on different platforms is not recommended. ESTRADIOL (4021) Reviewed date:05/05/2023 08:47:53 AM Interpretation: Performing Lab:[facility] Acxu[address] [facility], [place] GwpeJA[address] Philip Epperson Notes/Report: NON-FASTING; NON-FASTING; NON-FASTING; NON-FASTING; NON-FAST ESTRADIOL 26 Reference Range Follicular Phase: 19-144 Mid-Cycle: 64-357 Luteal Phase: 56-214 Postmenopausal: < or = 31 Reference range established on post-pubertal patient population. No pre-pubertal reference range established using this assay. For any patients for whom low Estradiol levels are anticipated (e.g. males, pre-pubertal children and hypogonadal/post-menopau glo females), the [facility] Estradiol, Ultrasensitive, LCMSMS assay is recommended (order code 83494). Please note: patients being treated with the drug fulvestrant (Faslodex(R)) have demonstrated significant interference in immunoassay methods for estradiol measurement. The cross reactivity could lead to falsely elevated estradiol test results leading to an inappropriate clinical assessment of estrogen status. [facility] order code 73027-Kjkvalohg, Ultrasensitive LC/MS/MS demonstrates negligible cross reactivity with fulvestrant. VITAMIN B12 (927) Reviewed date:05/05/2023 08:47:58 AM Interpretation: Performing Lab:[facility] [address], [facility] HospitalPzhsKG[address] Philip Epperson Notes/Report: NON-FASTING; NON-FASTING; NON-FASTING; NON-FASTING; NON-FAST VITAMIN B12 0699 942-3676 pg/mL VITAMIN B12 (927) Reviewed date:12/20/2023 10:36:14 AM Interpretation: Performing Lab:[facility] [address], [place] AucyIQ[address] Philip Epperson Notes/Report: NON-FASTING; NON-FASTING; NON-FASTING; NON-FASTING; NON-FAST FASTING:YES FASTING: YES VITAMIN B12 431 015-3862 pg/mL TSH (899) Reviewed date:05/05/2023 08:48:04 AM Interpretation: Performing Lab:[facility] [address] [employer], [place] HcyzNN[address] Philip Epperson Notes/Report: NON-FASTING; NON-FASTING; NON-FASTING; NON-FASTING; NON-FAST TSH 1.29 Reference Range > or = 20 Years 0.40-4.50 Ranges First trimester 0.26-2.66 Second trimester 0.55-2.73 Third trimester 0.43-2.91 TSH W/REFLEX TO FT4 (18781) Reviewed date:12/20/2023 10:36:14 AM Interpretation: Performing Lab:[facility] [employer], [place] LtrsFS[address] Philip Epperson Notes/Report: NON-FASTING; NON-FASTING; NON-FASTING; NON-FASTING; NON-FAST FASTING:YES FASTING: YES TSH W/REFLEX TO FT4 1.79 Reference Range > or = 20 Years 0.40-4.50 Ranges First trimester 0.26-2.66 Second trimester 0.55-2.73 Third trimester 0.43-2.91 VITAMIN D,25-OH,TOTAL,IA (17 306) Reviewed date:12/20/2023 10:36:14 AM Interpretation: Performing Lab:[facility] Mmmv[address] [facility], [facility] CenterHqghDQ[address] Philip Epperson Notes/Report: NON-FASTING; NON-FASTING; NON-FASTING; NON-FASTING; [...] D, (D2,D3), LC/MS/MS is recommended: order code 60473 (patients >2yrs). See Note 1 Note 1 For additional information, please refer to http://education.Mobile2Me.Agile Health/faq/ILN155 (This link is being provided for informational/ educational purposes only.) VITAMIN D,25-OH,TOTAL,IA (17 306) Reviewed date:05/05/2023 08:48:09 AM Interpretation: Performing Lab:[facility] Kbjg9738 [facility], [facility] CenterNrcbAE[address] Philip Epperson Notes/Report: NON-FASTING; NON-FASTING; NON-FASTING; NON-FASTING; NON-FAST VITAMIN D,25-OH,TOTAL,IA 43 30-100 ng/mL Vitamin D Status 25-OH Vitamin D: Deficiency: <20 ng/mL Insufficiency: 20 - 29 ng/mL Optimal: > or = 30 ng/mL For 25-OH Vitamin D testing on patients on D2-supplementation and patients for whom quantitation of D2 and D3 fractions is required, the QuestAssureD(TM) 25-OH VIT D, (D2,D3), LC/MS/MS is recommended: order code 48717 (patients >2yrs). See Note 1 Note 1 For additional information, please refer to http://education.Endorse.me/faq/GLW230 (This link is being provided for informational/ educational purposes only.) TEST AUTHORIZATION Reviewed date:05/17/2023 12:04:42 PM Interpretation: Performing Lab:[facility] Iyim2693 [facility], [facility] CenterYsfbWA[address] Philip Epperson Notes/Report: NON-FASTING; NON-FASTING; NON-FASTING; NON-FASTING; NON-FAST TEST NAME: IRON, TIBC AND FERRITIN PANEL TEST CODE: 5616SB CLIENT CONTACT: SYED HUANG REPORT ALWAYS MESSAGE SIGNATURE The laboratory testing on this patient was verbally requested or confirmed by the ordering physician or his or her authorized insurance verification representative after contact with an employee of [employer]. Federal regulations require that we maintain on file written authorization for all laboratory testing. Accordingly we are asking that the ordering physician or his or her authorized insurance verification representative sign a copy of this report and promptly return it to the client advocate. Signature: COMMENT Please fax this signed form to [phone]. Please do not attempt to return this document by other methods. Documents will not be viewed by a insurance verification representative. Please do not use this fax number for other service requests. REASON FOR REFERRAL No Information SOCIAL HISTORY Tobacco Use: Social History Observation Description Date Details (start date - stop date) Never Smoker NA - NA Sex Assigned At : Social History Observation Description Sex Assigned At Unknown Smoking: Question Answer Notes Are you a: nonsmoker PROBLEMS Problem Type ICD Code Onset Dates Problem Status W/U Status Risk SNOMED Code Notes Problem Seasonal allergies (J30.2) Active confirmed 850882112 Problem Hypoglycemia (E16.2) Active confirmed 624433697 Problem Iron deficiency anemia, unspecified iron deficiency anemia type (D50.9) Active confirmed 51854385 VITAL SIGNS Heart Rate 78 /min 2023 Temperature 97.8 degrees Fahrenheit 2023 Blood pressure diastolic 72 mm Hg 2023 Height 70.75 in 2023 Blood pressure systolic 104 mm Hg 2023 Weight 135.8 lbs 2023 BMI 19.07 kg/m2 2023 Encounters Encounter Location Date Provider Diagnosis [facility] [address] [facility] [address] [place] [address] 12/19/2023 Deepa McNees [facility] [address] [facility] [address] [place] [address] 05/03/2023 Deepa McNees Fatigue, unspecified type R53.83 ; Hot flashes R23.2 and Seasonal allergies J30.2 [facility] [address] [facility] [address] [place] [address] 2023 Deepa McNees Routine medical exam Z00.00 ; Iron deficiency anemia, unspecified iron deficiency anemia type D50.9 ; Hypoglycemia E16.2 and Fatigue, unspecified type R53.83 [facility] [address] [facility] [address] [place] [address] 05/08/2023 Deepa McNees [facility] [address] [facility] [address] [place] [address] 01/08/2024 Deepa Bird Breast cancer screening by mammogram Z12.31 ASSESSMENTS Encounter Date Diagnosis Assessment Notes Treatment Notes Treatment Clinical Notes 05/03/2023 Hot flashes (ICD-10 - R23.2) Patient requests hormone levels be checked, discussed no indication for checking, will not change POC. Will check per her request. 05/03/2023 Fatigue, unspecified type (ICD-10 - R53.83) Likely related to her busy lifestyle and less than 8 hours of sleep per night. We will check labs to rule out thyroid disease, diabetes, vitamin deficiencies, anemia, etc. 2023 Routine medical exam (ICD-10 - Z00.00) PVM UTD. Will return for labs. Declines immunizations 2023 Iron deficiency anemia, unspecified iron deficiency anemia type (ICD-10 - D50.9) Will check CBC and iron levels and treat as indicated 01/08/2024 Breast cancer screening by mammogram (ICD-10 - Z12.31) 2023 Hypoglycemia (ICD-10 - E16.2) A1c added to labs. Discussed diet with consistent carb, protein at all meals. 05/03/2023 Seasonal allergies (ICD-10 - J30.2) Recommend OTC allergy meds and supportive care 2023 Fatigue, unspecified type (ICD-10 - R53.83) Chronic, at baseline. Likely multifactorial with small children, busy lifestyle, interrupted sleep due to children some nights. PERFECTO could be contributing. Labs to r/o other causes. If normal recommend sleep study. Patient denies snoring PLAN OF TREATMENT No Information Insurance Providers Payer Name Payer Address Payer Phone Subscriber Number Group Number Insured Name Patient Relationship to Insured Coverage Start Date Coverage End Date [facility] [address] [place] [address] [id number] Toyin Sutton Self - patient is the insured MEDICAL (GENERAL) HISTORY Surgical History Surgery Date(Month/Year) Diaphramatic Hernia Repair 1985 2021 Hospitalization History Reason Date(Month/Year) 2021
[2024-02-09 14:45] VITALS: BP 112/68; PULSE 87; RESP 20; TEMP 36.9; O2SAT 99
[2024-02-09 15:05] LABS: Apearance,Urine Clear (Clear); Color,Urine Yellow (Yellow); PH,Urine 5.5 (5.0-8.5)
[2024-02-09 15:06] LABS: Bilirubin,Urine Negative (Negative); Blood, Urine 3+ (Negative); Glucose,Urine (UA) Negative (Negative); Ketones,Urine Negative (Negative); Protein,Urine Negative (Negative); UTC Leukocyte Esterase,Urine 1+ (Negative); UTC Nitrate,Urine Negative (Negative); Urobilinogen,Urine 0.2 EU/dl (0.2)
--- NOTE | 2024-02-09 15:07 | EXP.UTC ---
Discharge Plan Disposition Patient Disposition: Home, Self-Care Condition: Good Prescriptions Prescriptions: New nitrofurantoin monohyd/m-cryst [Macrobid] 100 mg capsule 100 mg PO Q12H 5 Days Qty: 10 0RF Rx Instructions: must administer with a meal/food phenazopyridine [Pyridium] 200 mg tablet 200 mg PO Q8H 2 Days Qty: 6 0RF Referrals Follow up/Referrals: Deepa Bird APRN [Primary Care Provider] - See instructions Activity Restrictions/Add. Instructions Additional Instructions/Restrictions: *Increase fluids. Water not Soda or Tea *Start antibiotic immediately and be sure to take as ordered for the FULL length of time although you should start to see improvement over the next 48 hours *Pyridium as needed Remember this medication will turn your urine . This is normal but it will stain what ever it gets on *You should not use Pyridium for more than 48 hours. If so , follow up with your primary physician to review urine culture and ensure that antibiotic is adequate for infection *Be SURE to follow up anytime for new or worsening symptoms with your family doctor. AND in 48 hours for urine culture results with your family doctor, if you do not have a doctor then you may call back to the [facility] for urine culture results and further treatment. We do recommend that you choose and establish care with a Primary Care Physician. ?AND follow up with them ?in 10-14 days to repeat UA to ensure infection is resolved and blood no longer present *Be sure to let your PCP know that we sent urine cultures from the [facility] so they can follow up to ensure that you area the on the correct antibiotic Call your doctor office and make appointment for 48 hours (2 days from today) ?to follow up and get the results of your urine culture and further treatment Clinical Impressions Clinical Impression: UTI (urinary tract infection) Instructions Patient Instructions: DI for Urinary Tract Infection (UTI), Urinary Tract Infection Print Language Print Language: Hungarian Discharge ED Provider: Debo Pina [facility] HPI General Stated complaint: possible uti Mode of Arrival: Ambulatory Source of Information: Patient Limitations: No Limitations Time Seen by Provider: 02/09/24 15:07 Description of Symptoms (Recalled from Triage Doc. 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 and communicates with writing Related Data Previous Rx's ?Medication ?Instructions ?Recorded nitrofurantoin 100 mg PO Q12H 5 days #10 caps 02/09/24 monohydrate/macrocrystals 100 mg capsule (Macrobid) phenazopyridine 200 mg tablet 200 mg PO Q8H pain 2 days #6 tabs 02/09/24 (Pyridium) Allergies Allergy/AdvReac Type Severity Reaction Status Date / Time No Known Allergies Allergy Verified 08/28/17 10:38 Worker's Comp Is this a Worker's Comp case?: [facility] Dis[facility]: The information contained in this section may have been updated after the patient was seen, as this information can be updated by other users. Medical History (Updated 02/09/24 @ 15:19 by Debo Pina APRN) History of anemia Surgical History (Updated 02/09/24 @ 15:02 by Mragarita Martins RN) History of section Social History Smoking Status: Never smoker alcohol intake: current alcohol intake frequency: holidays/special occasions only current occupational status: employed Travel in the last 8 weeks: None ROS Obtained: Yes All systems reviewed & no additional complaints except as documented and Yes Systems reviewed as appropriate & no additional complaints except as documented Constitutional Constitutional: Reports system reviewed and no additional complaints, except as documented and Reports as per HPI ENT Ears, Nose, Mouth, and Throat: Reports system reviewed and no additional complaints, except as documented and Reports as per HPI Respiratory Respiratory: Reports system reviewed and no additional complaints, except as documented and Reports as per HPI Gastrointestinal Gastrointestingal: Reports system reviewed and no additional complaints, except as documented and as per HPI; Denies abdominal pain or nausea Genitourinary Female Genitourinary: Reports system reviewed and no additional complaints, except as documented, Reports as per HPI, Reports dysuria, Reports urinary frequency and Reports urinary urgency Physical Exam General General appearance: alert and in no apparent distress ENT ENT exam: Present mucous membranes moist Respiratory Respiratory exam: Present normal lung sounds bilaterally; Absent respiratory distress or wheezes Cardiovascular Cardiovascular exam: Present regular rate, normal rhythm and normal heart sounds Abdominal Exam Abdominal exam: Present soft and normal bowel sounds; Absent distention or tenderness Neurological Exam Neurological exam: Present alert, oriented X3 and normal gait Medical Decision Making Gerardo Inquiry Pt receiving controlled substance: No Gerardo was queried for this patient: No Vital Signs: 02/09/24 14:45 Temperature 98.4 F Temperature Source Oral Pulse Rate [Left Brachial] 87 Respiratory Rate 20 Blood Pressure [Left Arm] 112/68 Blood Pressure Mean [Left Arm] 82 Blood Pressure Source [Left Arm] Automatic Cuff Blood Pressure Position [Left Arm] Sitting 02 Sat by Pulse Oximetry 99 Oxygen Delivery Method Room Air Lab Data Lab results reviewed: Yes I reviewed the patient's lab results. Lab Results 02/09/24 15:03: Urine Color Yellow, Urine Appearance Clear, Urine pH 5.5, Ur Specific Alpine 1.020, Urine Protein Negative, Urine Glucose (UA) Negative, Urine Ketones Negative, Urine Blood 3+, Urine Nitrate Negative, Urine Bilirubin Negative, Urine Urobilinogen 0.2, Ur Leukocyte Esterase 1+ A Orders (Tests/Meds): ORDERS Category Date Time Status Urine Culture Stat Micro 02/09/24 15:03 Ordered Medical Decision Narrative: Patient states that she is on her period right now
[2024-02-09 15:21] VITALS: BP 112/68; PULSE 87; RESP 20; TEMP 36.9; O2SAT 99
--- NOTE | 2024-02-12 10:53 | PC.NURSE ---
REVIEWED PATIENT'S URINE CULTURE RESULTS. NO CHANGE NEEDED
== END 2024-02-09 15:25 | disposition home or self-care (01) ==
PROVIDERS: Emergency Provider Nurse Practitioner; PCP Nurse Practitioner Family
DX: N39.0 Urinary tract infection, site not specified (principal); B96.29 Other Escherichia coli [E. coli] as the cause of diseases classified elsewhere; R30.0 Dysuria; R35.0 Frequency of micturition
CPT/HCPCS: 81003; 87086; 87088; 87186; 99204; 99212; G0463

== ENCOUNTER 2024-08-20 09:28 | Outpatient (CLI) | payer BC, SELFPAY ==
[2024-08-20 09:47] LABS: Basophils % 0.9 % (0.1-2.0); Eosinophils # 0.1 K/mm3 (0.0-0.4); Eosinophils % 1.5 % (0.1-12.0); Hematocrit 40.2 % (37.0-47.0); Hemoglobin 12.4 g/dL (12.2-16.2); Lymphocytes # 1.6 K/mm3 (0.7-4.5); Lymphocytes % 34.9 % (10-50); Mean Corpuscular HGB Conc 30.8 g/dL (31.8-35.4); Mean Corpuscular Hemoglobin 24.1 pg (27.0-31.2); Mean Corpuscular Volume 78.1 fl (81-99); Mean Platelet Volume 9.5 fl (7.4-10.4); Monocytes # 0.4 K/mm3 (0.1-1.0); Monocytes % 7.7 % (1.7-9.3); Neutrophils # 2.5 K/mm3 (1.8-7.8); Neutrophils % 54.8 % (37.0-80.0); Platelet Count 237 K/mm3 (142-424); Red Blood Count 5.15 M/mm3 (4.20-5.40); White Blood Count 4.6 K/mm3 (4.8-10.8)
[2024-08-20 10:07] LABS: Albumin Level 4.4 g/dl (3.5-5.0); Chloride 101 mmol/L (98-107); Potassium 4.8 mmoL/L (3.5-5.1); Sodium 140 mmol/L (136-145)
[2024-08-20 10:09] LABS: Alanine Aminotransferase 19 U/L (12-78); Anion Gap 11.8 mEq/L (5-15); Aspartate Amino Transferase 24 U/L (14-36); Blood Urea Nitrogen 10 mg/dl (7-17); Carbon Dioxide 32 mmol/L (22.0-30.0); Estimated Glomerular Filt Rate 94 ml/min (>60); GFR (African American) 113 ML/MIN (>60)
[2024-08-20 10:10] LABS: Albumin/Globulin Ratio 1.7 (1.1-1.8); Alkaline Phosphatase 45 U/L (38-126); Bilirubin,Total 0.3 mg/dl (0.2-1.3); Calcium 9.3 mg/dl (8.4-10.2); Globulin 2.6 g/dL (1.3-3.2); Glucose 88 mg/dl (74-100); Iron 34 ug/dL (37-170); Magnesium 1.8 mg/dl (1.6-2.3)
[2024-08-20 10:19] LABS: Total Iron Binding Capacity 388 ug/dL (265-497)
[2024-08-20 10:41] LABS: Thyroid Stimulating Hormone 0.49 uIU/mL (0.465-4.68)
[2024-08-20 11:27] LABS: 25-OH Vitamin D, Total 54.8 ng/mL (30-100)
[2024-08-20 11:59] LABS: Vitamin B12 986 pg/mL (239-931)
== END 2024-08-20 23:59 | disposition home or self-care (01) ==
LOC: LAB 09:29
PROVIDERS: PCP Internal Medicine Adolescent Medicine; Visit Provider Obstetrics & Gynecology
DX: N95.1 Menopausal and female climacteric states (principal); R53.83 Other fatigue; Z86.2 Personal history of diseases of the blood and blood-forming organs and certain disorders involving the immune mechanism
CPT/HCPCS: 36415; 80053; 82306; 82607; 82670; 82728; 83001; 83540; 83550; 83735; 84207; 84443; 85025

== ENCOUNTER 2024-11-28 14:14 | Emergency (ER) | payer BC, SELFPAY ==
[2024-11-28 14:32] VITALS: BP 120/87; PULSE 88; RESP 18; TEMP 36.4; O2SAT 97; BMI 19.9
--- OUTSIDE RECORDS SUMMARY | 2024-11-28 14:49 | XMS_ITS | Data Portability ---
Author Organization CELINE CARMELO [facility] Address [address] [facility] [address] [place] [address] Care Team Providers Care Intelligent Systems Engineer Name Role Phone ELIFSHAHNAZ VILLATORO Referring Provider Assessment No assessment recorded. Plan of Treatment Reminders Order Date Submit Date Provider Last Modified By Organization Details Last Modified Time Details Appointments None recorded. Lab None recorded. Referral None recorded. Procedures None recorded. Surgeries None recorded. Imaging US, thyroid - To be scheduled after 07/09/2023- evaluate thyroid nodule 2023 025 CRAIG [facility], [address], [address], [place], [address], 5 09:35:19 US, thyroid - To be scheduled after 07/09/2023- evaluate thyroid nodule 2022 023 [email or web address] [facility], [address], [address], [place], [address], 3 07:36:31 Medication Orders None recorded. Patient TargetsNo targets recorded. Patient InstructionsNo instructions recorded. Reason for Referral None Reported. Results Created Date Observation Date Name Description Value Unit Range Abnormal Flag Note LastModifiedBy Organization Detail LastModifiedTime 07/11/19 24 07/11/2023 US, thyro id No observ ation record ed. [email or web address] [facility] [address], [place], [address], 07/17/2023 11:30:55 07/31/19 25 07/24/2024 US, thyro id No observ ation record ed. BARCODE [facility] [address], [place], [address], 07/31/2024 09:35:19 Result Notes None recorded. Problems No Known Problems Procedures Surgical History Date Name Laterality Status Provider Name and Address Organization Details Recorded Time section completed [facility] 07/27/2022 13:57:05 Imaging Results Imaging Date Name Status LastModified by Organiz ation Details LastModified Time 07/11/2023 US, thyroid completed [email or web address] [facility] [address], [place], [address], 07/17/2023 11:30:55 07/24/2024 US, thyroid completed BARCODE [facility] [address] [facility] [address], [place], [address], 07/31/2024 09:35:19 Procedure Notes None recorded. Medical Equipment None Reported. Allergies No known drug allergies Medications Name Sig Start Date Stop Date Status Note LastModified by Organization Details LastModified Time iron active Not Available Not Availa ble Not Available Vitals Date Recorded Body weight Body mass index (BMI) Body height Heart rate Systolic blood pressure Diastolic blood pressure Provider Name and Address Organization Details Last Updated DateTime 3 35997.1 5 g 20.2 kg/m2 175.26 cm 75 /min 98 mm[Hg] 66 mm[Hg] [facility] 3 14:00:49 Date Recorded Body weight Heart rate Systolic blood pressure Diastolic blood pressure Provider Name and Address Organization Details Last Updated DateTime 08/01/2023 07556.97 g 65 /min 104 mm[Hg] 68 mm[Hg] Dasia Stroud [facility] 08/01/2023 11:47:51 Social History None recorded. Functional Status None recorded. Mental Status None recorded. Family History Nothing Reported. Medical History No medical history recorded. Gynecological HistoryNo gynecological history recorded. Obstetrics History GPAL:G 0 P 0 0 0 0 Past Encounters Encounter ID Performer Location Encounter Start Date Encounter Closed Date Diagnosis/Indication Diagnosis SNOMED-CT Code Diagnosis ICD10 Code Diagnosis Note [id number] LIA STROUD APRN ENDOCRINO [facility] [address] [place] [address] 07/27/2022 13:44:31 07/27/2022 14:49:56 Fatigue 29759529 R53.83 -Not related to thyroid. All levels WNL per labs on 03/10/22TSH 1.780Free T4 1.25Free T3 3.3TPO negative-P t states symptoms have improved over the past few weeks. Thyroid nodule 268105389 E04.1 -Discussed incidence and significan ce of thyroid nodules and potential for thyroid cancer. Pt does not have a family history of thyroid cancer or any other thyroid disorders that she is aware of.-Discus sed patient's case with Dr. Patel.-Req uest images from [facility].-Fu rther recommenda tions once results received.- Anticipate 1 year follow up with ultrasound before visit.-Kaylyn paul verbalized understand ing and agreed with plan. All questions answered. [id number] POLO COYNE APRN ENDOCRINO [facility] [address] [place] [address] 08/01/2023 11:38:57 08/01/2023 12:08:48 Thyroid nodule 027946188 E04.1 -Discussed incidence and significan ce of thyroid nodules and potential for thyroid cancer. Pt does not have a family history of thyroid cancer or any other thyroid disorders that she is aware of.-repeat US in 1 year-[facility] er recommenda tions once results received.- Anticipate 1 year follow up with ultrasound before visit.-Kaylyn paul verbalized understand ing and agreed with plan. All questions answered. Health Concerns Section Related Observation LastModified by Organization Detai ls LastModified Time None Recorded Concern Status LastModified by Organization Details LastModified Time None Recorded Advance Directives Directive None Recorded Payers Insurance Date Sequence Insurance Name Policy Number Policy Castañeda Covered Member ID Castañeda Member ID Guarantor Name 07/29/2024 1 [place] [id number] 1 Jeffy Sutton [id number] Toyin Sutton Notes Date Note Type Note Provider Name and Address Organization Details Recorded Time 07/27/2022 text/html Mrs. Sutton is a 36 year old female patient, who is seen at the office today at the request of Shahnaz Paiz PA-C. Patient reports chronic fatigue. She does have 2 children, youngest was born last August. All labs were WNL. Thyroid ultrasound was ordered suggested calcification (3mm) in right thyroid lobe. Previous thyroid [facility] {{Yes* No}} [facility] versus a 3mm calcified nodules in the right lobe. The study is otherwise normal. No family history of thyroid cancer or thyroid abnormalities. No personal history of cancer. Associated Symptoms:General: no heat intolerance; no cold intolerance; no weight loss; no weight gain;EENT: no dry eyes; no vision changes; no hoarseness; no difficulty swallowing;Cardiac: no fast heart rate; no increased blood pressure; no palpitations; no chest pain; no chest tightness or pressure;Pulm: no shortness of breath;GI/: no diarrhea; no vomiting; no decreased appetite; no loose stools;MSK: no joint pain;Neuro: no numbness/tingling of the hands or feet; no tremor; no headaches;Psych: no anxiety; no insomnia; no hypoglycemia; no hypertension;Endo: no diabetes; no excessive appetite; no excessive thirst; no excessive urination; no excessive sweating; Reports: LIA STROUD, S[address] [place], [address], [facility] 07/27/2022 14:33:46 08/01/2023 text/html Mrs. Sutton is a 37 year old female patient, who is seen at the office today for a follow up. Patient reports chronic fatigue. She does have 2 children. All labs were WNL. Thyroid ultrasound was ordered suggested calcification (3mm) in right thyroid lobe. Previous thyroid ultrasound: {{Yes* No}} ; 07/11/23,findings 0.6mm nodule with calcified edge T1-RADS of Cat 5, similar in size to previous scan No family history of thyroid cancer or thyroid abnormalities. No personal history of cancer. Associated Symptoms:General: no heat intolerance; no cold intolerance; no weight loss; no weight gain;EENT: no dry eyes; no vision changes; no hoarseness; no difficulty swallowing;Cardiac: no fast heart rate; no increased blood pressure; no palpitations; no chest pain; no chest tightness or pressure;Pulm: no shortness of breath;GI/: no diarrhea; no vomiting; no decreased appetite; no loose stools;MSK: no joint pain;Neuro: no numbness/tingling of the hands or feet; no tremor; no headaches;Psych: no anxiety; no insomnia; no hypoglycemia; no hypertension;Endo: no diabetes; no excessive appetite; no excessive thirst; no excessive urination; no excessive sweating; Reports: fatigue but stable and she has recently been diagnosed with anemia and started on iron POLO COYNE, DYED YARN OPERATOR [address] [place], [address], [facility] 08/01/2023 12:59:20 OBGyn Episode No OBEpisode recorded.
[2024-11-28 15:51] LABS: Microscopic, Urine URINE MICROSCOPIC (MICROSCOPIC)
[2024-11-28] MEDS: ONDANSETRON 4MG/2ML VIAL 4 MG IV (15:54)
[2024-11-28] MEDS: METHOCARBAMOL 500MG TABLET 1500 MG PO (15:54)
[2024-11-28] MEDS: 0.9 % SODIUM CHLORIDE 1000ML 1,000 ML 999 ML IV (15:54)
[2024-11-28 15:57] LABS: Basophils # 0.1 K/mm3 (0-0.2); Basophils % 1.1 % (0.1-2.0); Eosinophils # 0.1 Kmm3 (0.0-0.4); Eosinophils % 1.1 % (0.1-12.0); Hematocrit 44.1 % (37.0-47.0); Hemoglobin 13.7 g/dL (12.2-16.2); Immature Granulocytes # 0.02 10^3uL; Immature Granulocytes % 0.3 %; Lymphocytes # 1.6 K/mm3 (0.7-4.5); Lymphocytes % 20.4 % (10-50); Mean Corpuscular HGB Conc 31.1 g/dL (31.8-35.4); Mean Corpuscular Hemoglobin 25.5 pg (27.0-31.2); Mean Platelet Volume 10.2 fl (7.4-10.4); Monocytes # 0.6 K/mm3 (0.1-1.0); Monocytes % 7.6 % (1.7-9.3); Neutrophils # 5.5 K/mm3 (1.8-7.8); Neutrophils % 69.5 % (37.0-80.0); Nucleated Red Blood Cells # 0 10^3/uL; Nucleated Red Blood Cells % 0 %; Platelet Count 290 K/mm3 (142-424); Red Blood Count 5.38 M/mm3 (4.20-5.40); Red Cell Distribution Width 14.9 % (11.5-17.5); Red Cell Distribution Width-SD 43.7 fL; White Blood Count 7.9 K/mm3 (4.8-10.8)
--- NOTE | 2024-11-28 15:57 | ED_ITS ---
Discharge Plan Disposition Patient Disposition: Home, Self-Care Prescriptions Prescriptions: New prednisone 20 mg tablet 40 mg PO DAILY 5 Days Qty: 10 0RF methocarbamol 750 mg tablet 1,500 mg PO TID 5 Days Qty: 30 0RF No Action sulfamethoxazole-trimethoprim [Bactrim DS] 800-160 mg tablet 1 tab PO Q12H 5 Days Qty: 10 0RF ferrous sulfate [Iron (ferrous sulfate)] 325 mg (65 mg iron) tablet 325 mg PO DAILY Qty: 30 5RF Referrals Follow up/Referrals: Deepa Bird APRN [Primary Care Provider] - See instructions Activity Restrictions/Add. Instructions Additional Instructions/Restrictions: Call your family doctor to establish care for this visit to the emergency department and schedule follow-up within 48 hours to ensure improvement. If you have any worsening of your condition or any other concerning signs or symptoms, return to the emergency department or your primary care doctor for further evaluation. Robaxin can cause you to feel drowsy. Do not drive, operate heavy machinery, or engage in any activity that may make you tired, fall asleep, and because harm to yourself or others while taking this medication. Clinical Impressions Clinical Impression: Cervical myofascial pain syndrome Instructions Patient Instructions: DI for Neck Pain Print Language Print Language: Nepali Discharge ED Provider: Mack Gonzalez General Adult HPI General Chief complaint: Neck Pain/Injury Stated complaint: Neck pain, dizzy Time Seen by Provider: 11/28/24 15:04 Mode of Arrival: Ambulatory Source of Information: Patient Description of Symptoms (Recalled from ER Triage Doc. by RN): Pt presents for evaluation of neck stiffness for a few days pt states she went to the chiropractor because she has neck pain baseline. Pt states she has had nausea History of Present Illness HPI narrative: Please note that above description of symptoms, in this electronic medical record under categorization of recalled from ER triage doctor by RN are reflective of an initial nursing assessment, however, is not reflective of my full history and physical exam that was personally taken and clarified. Consequentially, this preceding description of symptoms, which may include the patient's categorized chief complaint in the EMR, do not reflect my personal clinical impression, and the ultimate description of history of present illness and patient stated complaints should be deferred to this section of the note. Unless stated otherwise or congruent with this section of the note, additional signs, symptoms, or incongruence should be interpreted as inaccurate with my clinical impression. Related Data Previous Rx's ?Medication ?Instructions ?Recorded ferrous sulfate 325 mg (65 mg 325 mg PO DAILY #30 tabs 08/25/24 iron) tablet (Iron (ferrous sulfate)) sulfamethoxazole 800 1 tab PO Q12H 5 days #10 tabs 10/13/24 mg-trimethoprim 160 mg tablet (Bactrim DS) methocarbamol 750 mg tablet 1,500 mg (2 x 750 mg) PO TID 5 11/28/24 days #30 tabs prednisone 20 mg tablet 40 mg (2 x 20 mg) PO DAILY 5 days 11/28/24 #10 tabs Allergies Allergy/AdvReac Type Severity Reaction Status Date / Time No Known Allergies Allergy Verified 10/13/24 13:24 [facility] Disclaimer: The information contained in this section may have been updated after the patient was seen, as this information can be updated by other users. Medical History (Updated 11/28/24 @ 16:54 by Mack Gonzalez MD) Cyst of left Bartholin gland Otitis externa Otitis media Fatigue Perimenopausal symptoms Hiatal hernia History of anemia Surgical History History of section Social History Smoking Status: Never smoker alcohol intake: current alcohol intake frequency: holidays/special occasions only current occupational status: employed Travel in the last 8 weeks?: None Have you lived/traveled outside [place] in past 30 days?: No Contact w/someone who lives/traveled outside US past 30 days?: No Exposure to someone with infectious disease in past 14 days?: No Do you have a fever (greater than 100.4 F or 38 C)?: No Have you tested positive for COVID-19?: No Exposed to someone with COVID-19 in past 14 days?: No Do you have a sore throat?: No Do you have a cough?: No Do you have any weakness?: No Do you have any diarrhea?: No Are you experiencing any unusual bleeding?: No Do you have any muscle aches/pain?: No Do you have any abdominal pain?: No Are you experiencing loss of taste or smell?: No Other Medical History Have you received the Flu Vaccine for this season: No Have you received the Pneumonia Vaccine: No ROS Obtained: Yes All systems reviewed & no additional complaints except as documented Physical Exam General General appearance: alert, in no apparent distress and anxious Head Head exam: atraumatic and normocephalic Eye Eye exam: Present normal appearance, PERRL and EOMI Neck Neck exam: Present normal inspection, full ROM, trachea midline and tenderness (Muscular tenderness bilaterally going up to the base of the occiput); Absent meningismus Respiratory Respiratory exam: Present normal lung sounds bilaterally; Absent respiratory distress, wheezes, stridor, accessory muscle use or prolonged expiratory phase Cardiovascular Cardiovascular exam: Present regular rate, normal rhythm and other (Pulses equal symmetric in upper and lower extremities) Abdominal Exam Abdominal exam: Present soft; Absent distention, tenderness or pulsatile mass Extremities Exam Extremities exam: Absent edema Neurological Exam Neurological exam: Present alert, oriented X3 and CN II-XII intact; Absent motor sensory deficit Skin Skin exam: Present warm and dry; Absent diaphoresis or erythema Medical Decision Making Medical Records Medical records reviewed: Yes I reviewed the patient's medical records. Screening: Per USPSTF and CDC recommendations, given the prevalence of disease in our region, it is our hospital?s policy to screen for HIV and viral Hepatitis for all patients aged 18 and over and those with ongoing risk factors. Gerardo Inquiry Pt receiving controlled substance: No Gerardo was queried for this patient: No Vital Signs: 11/28/24 14:32 11/28/24 16:30 Temperature 97.6 F Temperature Source Temporal Artery Scan Pulse Rate 79 Pulse Rate [Right] 88 Respiratory Rate 18 Blood Pressure 107/71 L Blood Pressure [Right Arm] 120/87 Blood Pressure Mean [Right Arm] 98 Blood Pressure Source [Right Arm] Manual Cuff/ Palpation 02 Sat by Pulse Oximetry 97 99 Lab Data Lab Results 11/28/24 15:44: WBC 7.9, RBC 5.38, Hgb 13.7, Hct 44.1, MCV 82.0, MCH 25.5 L, M CHC 31.1 L, RDW 14.9, Plt Count 290, MPV 10.2, Neut % (Auto) 69.5, Lymph % (Auto) 20.4, [place] % (Auto) 7.6, Eos % (Auto) 1.1, Baso % (Auto) 1.1, Neut # (Auto) 5.5, Lymph # (Auto) 1.6, [place] # (Auto) 0.6, Eos # (Auto) 0.1, Baso # (Auto) 0.1, Sodium 140, Potassium 3.9, Chloride 102, Carbon Dioxide 33 H, Anion Gap 8.9, BUN 12, Creatinine 1.00, Estimated Creat Clear 74, Estimated GFR 62, Est GFR ( Amer) 75, Glucose 101 H, Calcium 10.0, Magnesium 2.0, Total Bilirubin 0.4, AST 27, ALT 18, Alkaline Phosphatase 47, Total Protein 8.3 H, A lbumin 5.2 H, Globulin 3.1, Albumin/Globulin Ratio 1.7, Urine Color Yellow, Urine Appearance Clear, Urine pH 7.5, Ur Specific [place] 1.010, Urine Protein Negative, Urine Glucose (UA) Negative, Urine Ketones Negative, Urine Blood Negative, Urine Nitrate Negative, Urine Bilirubin Negative, Urine Urobilinogen 0.2, Ur Leukocyte Esterase Negative, Urine RBC Occasional, Urine WBC 3-5, Ur Squamous Epith Cells 5-10, Urine Bacteria 3+, Urine HCG, Qual Negative 11/28/24 15:44 11/28/24 15:44 Orders (Tests/Meds): ED MEDICATIONS Discontinued Medications Generic Name Dose Route Start Last Admin Trade Name Freq PRN Reason Stop Dose Admin Sodium Chloride 1,000 mls @ 999 mls/hr 11/28/24 15:23 11/28/24 15:54 Sod Chlor 0.9% 1000ml Bag IV 11/28/24 16:23 999 mls/hr .Q1H1M ONE Administration Methocarbamol 1,500 mg 11/28/24 15:23 11/28/24 15:54 Methocarbamol 500mg Tablet PO 11/28/24 15:24 1,500 mg ONCE ONE Administration Ondansetron HCl 4 mg 11/28/24 15:23 11/28/24 15:54 Ondansetron 4mg/2ml Vial IV 11/28/24 15:24 4 mg ONCE ONE Administration ORDERS Category Date Time Status CBC w/Auto Diff [Complete Blood Count Auto Diff] Stat Lab 11/28/24 15:44 Completed CMP [Comprehensive Metabolic Panel] Stat Lab 11/28/24 15:44 Completed MAG [Magnesium] Stat Lab 11/28/24 15:44 Completed UA [Urinalysis and Microscopic] Stat Lab 11/28/24 15:44 Completed Urine , HCG Qual. Stat Lab 11/28/24 15:44 Completed Urine Culture Stat Micro 11/28/24 15:44 Received Medical Decision Narrative: 38-year-old female presenting with what she thinks is meningitis. She states she had a friend of meningitis and she is incredibly anxious about the situation. States that for the past 5 days she has had stiffness in her neck and the muscles bilaterally. Feels that it goes up to the base of her skull bilaterally, then down to her shoulders. Does not extend further. States that it is tight when she turns her head left and right, but normal when she extends and flexes her neck. No fevers, no vomiting, no vision changes, no change in mental status or confusion and no headache. Has not noticed anything that makes it better. She went to the chiropractor hoping it would help and that did not help at all. Chiropractor did not make it better or worse. Other new factors include invisible braces which she feels were initially very painful, but have gotten better over the past few days, but also started the day that all of this neck tension started. Came in for further evaluation History was obtained via conversation with patient. On arrival, patient hemodynamically stable, alert, oriented x4, appropriate, GCS 15, moving all extremities spontaneously, pupils equal and reactive to light. Full physical exam performed and significant for well-appearing female in no acute distress. Muscle tenderness bilateral neck with associated tension, no midline tenderness. Range of motion of neck normal, but is subjectively tender on the sides when she is turning. Speaking full sentences, afebrile, normotensive, nontachycardic and grossly neurologically intact and ambulatory. Differential includes muscle tension, radiculopathy, neuropathy, less likely to be meningitis, meningismus, dissection, among others. Patient placed on continuous cardiac monitoring and continuous pulse ox with initial blood pressure 120/87, heart rate 88, saturation 97% on room air. Patient was given fluids, Zofran, Robaxin for symptomatic management and correction of underlying abnormalities. Workup independently interpreted and significant for no leukocytosis, normal relative white counts. Chemistry nonactionable. Electrolytes all normal. LFTs normal as well. Patient's urinalysis without concern for UTI. CT scan was considered, but not deemed necessary. She has no neurologic deficits, unremarkable physical exam other than muscle tension bilateral paraspinal cervical spine muscles and very clinically well. On reevaluation, patient states that her pain in her neck is much better, but still there. Very clinically well-appearing, no obvious meningismus and she appears improved on physical exam. Given patient presentation, workup, history, this most likely represents myofascial pain of the cervical region. I feel this is incredibly unlikely to be meningismus or dissection. She is neuro intact, no neurocomplaints, vision is normal, no headache or fever, etc. Recommend she follow-up with her family doctor. Robaxin sent to pharmacy. If Robaxin does not help, I told her that she should start taking the prednisone each morning as this will help with the inflammatory pain. She likely slept on it wrong or sustained some other myofascial strain causing the symptoms, but I feel at this point, life-threatening etiologies have been effectively ruled out. Because patient at baseline without signs or symptoms of clinical decompensation, deemed appropriate for discharge. Results were relayed to patient who voiced understanding and were agreeable to outpatient management and follow up. I discussed my clinical impression with patient and answered all questions. At this time, the evidence for any other entities in the differential is insufficient to warrant any further testing or ED observation. This was explained as well. Advisory was given that persistent or worsening symptoms require further evaluation. I confirmed the understanding of this discussion. Animator disclaimer Much of this encounter note is an electronic architecture consultant spoken language to printed text. Electronic architecture consultant of the spoken language may permit errors. Although I have reviewed the note, some errors may still exist. Critical Care Critical Care Time Critical Care Time: No
[2024-11-28 15:58] LABS: Albumin Level 5.2 g/dl (3.5-5.0); Chloride 102 mmol/L (98-107); Potassium 3.9 mmoL/L (3.5-5.1)
[2024-11-28 16:00] LABS: Urine Pregnancy, HCG Qual. Negative (Negative)
[2024-11-28 16:01] LABS: Alanine Aminotransferase 18 U/L (12-78); Albumin/Globulin Ratio 1.7 (1.1-1.8); Alkaline Phosphatase 47 U/L (38-126); Aspartate Amino Transferase 27 U/L (14-36); Bilirubin,Total 0.4 mg/dl (0.2-1.3); Blood Urea Nitrogen 12 mg/dl (7-17); Carbon Dioxide 33 mmol/L (22.0-30.0); Creatinine Clearance Estimated 74 mL/min (50-200); Estimated Glomerular Filt Rate 62 ml/min (>60); GFR (African American) 75 ML/MIN (>60); Globulin 3.1 g/dL (1.3-3.2); Glucose 101 mg/dl (74-100); Total Protein,Serum 8.3 g/dl (6.3-8.2)
[2024-11-28 16:03] LABS: Appearance,Urine CLEAR (Clear); Bilirubin,Urine Negative (Negative); Blood, Urine Negative (Negative); Color,Urine YELLOW (Yellow); Glucose,Urine (UA) Negative (Negative); Ketones,Urine Negative (Negative); Leukocyte Esterase,Urine Negative (Negative); Nitrate,Urine Negative (Negative); PH,Urine 7.5 (5.0-8.5); Protein,Urine Negative (Negative); Urobilinogen,Urine 0.2 EU/dl (0.2)
[2024-11-28 16:12] LABS: Anion Gap 8.9 mEq/L (5-15); Sodium 140 mmol/L (136-145)
[2024-11-28 16:19] LABS: Bacteria,Urine 3+ /lpf; RBC,Urine Occasional #/hpf (0-3)
[2024-11-28 16:30] VITALS: BP 107/71; PULSE 79; O2SAT 99
[2024-11-28 17:22] VITALS: BP 114/75; PULSE 86; RESP 18; TEMP 36.8; O2SAT 100
== END 2024-11-28 17:23 | disposition home or self-care (01) ==
PROVIDERS: Emergency Provider Emergency Medicine; PCP Nurse Practitioner Family
DX: M79.7 Fibromyalgia (principal); M54.2 Cervicalgia; R42 Dizziness and giddiness
CPT/HCPCS: 80053; 81001; 81025; 83735; 85025; 87086; 96361; 96374; 99285; J2405; J7030